=== PATIENT | male | born 1960 | race Caucasian/White ===

== ENCOUNTER 2017-11-10 07:10 | Day surgery (SDC) | payer SELFPAY, OTHER ==
[2017-11-10] MEDS ORDERED: PROPOFOL 40 ML (09:03)
[2017-11-10] MEDS ORDERED: FENTAnyl 50 MCG/ML VIAL (09:03)
[2017-11-10] MEDS ORDERED: LIDOCAINE 100 MG SYRINGE (09:03)
== END 2017-11-10 11:29 | disposition home or self-care (01) ==
LOC: GIL 07:10
DX: Z12.11 Encounter for screening for malignant neoplasm of colon (principal); K29.50 Unspecified chronic gastritis without bleeding; K21.9 Gastro-esophageal reflux disease without esophagitis; K64.8 Other hemorrhoids
CPT/HCPCS: 43239; 88305; 88312